=== PATIENT | female | born 1990 | race Caucasian/White ===

== ENCOUNTER 2017-05-09 12:25 | Emergency (ER) | payer OTHER ==
[2017-05-09 12:37] VITALS: BP 148/109; PULSE 92; RESP 18; TEMP 99.1; O2SAT 98
--- NOTE | 2017-05-09 14:24 | EDPHY ---
H & P Stated Complaint: psych evaluation Time Seen by Provider: 05/09/17 14:11 HPI/ROS: CHIEF COMPLAINT: Psychosis HISTORY OF PRESENT ILLNESS: The patient is a 26-year-old female who is brought in by her family for psychotic features. She states that she is seeing things and she is very paranoid that she is going to if she falls asleep. She has a history of marijuana use for Crohn's disease. She also reports a history of heroin addiction after hospitalization that she went through recovery for several years ago. She more recently has been taking mushrooms, MDMA, LSD and DMT. She states that she took these on Saturday and on Saturday she felt like she was having a spiritual awakening but then on Saturday and Saturday during the eclipse became very afraid and thought that a shaman was entering her body. She and her family deny any history of schizophrenia or bipolar. She was hospitalized once for depression several years ago. She does not currently take any medications. She did major in Psychiatry he graduated top of her class. She complains about some wounds on her right foot and pain in her left ear and is concerned that she has an infection that is going to kill her . The patient told nursing staff that she has also been on a 36 hour fast and has not been taking her Seroquel regularly. REVIEW OF SYSTEMS: Constitutional: denies: chills, fever, recent illness, recent injury EENTM: denies: blurred vision, double vision, nose congestion Respiratory: denies: cough, shortness of breath Cardiac: denies: chest pain, irregular heart rate, lightheadedness, palpitations Gastrointestinal/Abdominal: denies: abdominal pain, diarrhea, nausea, vomiting, blood streaked stools Genitourinary: denies: dysuria, frequency, hematuria, pain Musculoskeletal: denies: joint pain, muscle pain Skin: denies: lesions, rash, jaundice, bruising Neurological: denies: headache, numbness, paresthesia, tingling, dizziness, weakness Hematologic/Lymphatic: denies: blood clots, easy bleeding, easy bruising Immunologic/allergic: denies: HIV/AIDS, transplant EXAM: GENERAL: Well-appearing, well-nourished and in no acute distress. HEAD: Atraumatic, normocephalic. EYES: Pupils equal round and reactive to light, extraocular movements intact, sclera anicteric, conjunctiva are normal. ENT: Pain in left ear but TMs normal, canal normal, nares patent, oropharynx clear without exudates. Moist mucous membranes. NECK: Normal range of motion, supple without lymphadenopathy or JVD. LUNGS: Breath sounds clear to auscultation bilaterally and equal. No wheezes rales or rhonchi. HEART: Regular rate and rhythm without murmurs, rubs or gallops. ABDOMEN: Soft, nontender, normoactive bowel sounds. No guarding, no rebound. No masses appreciated. BACK: No CVA tenderness, no spinal tenderness, step-offs or deformities EXTREMITIES: Normal range of motion, no pitting or edema. No clubbing or cyanosis. NEUROLOGICAL: Cranial nerves II through XII grossly intact. Normal speech, normal gait. 5/5 strength, normal movement in all extremities, normal sensation PSYCH: Normal mood, normal affect. SKIN: Small bites or wounds to bottom of right foot. No significant erythema or infection. Source: Patient Exam Limitations: No limitations - Personal History LMP (Females 10-55): 8-14 Days Ago Current Tetanus/Diphtheria Vaccine: Yes - Medical/Surgical History Hx Asthma: No Hx Chronic Respiratory Disease: No Hx Diabetes: No Hx Cardiac Disease: No Hx Renal Disease: No Hx Cirrhosis: No Hx Alcoholism: No Hx HIV/AIDS: No Hx Splenectomy or Spleen Trauma: No Other PMH: Depression, polysubstance abuse. PCOS - Family History Significant Family History: No pertinent family hx - Social History Smoking Status: Never smoked Alcohol Use: Sober Drug Use: None Constitutional: Initial Vital Signs Temperature (C) 37.3 C 05/09/17 12:34 Heart Rate 92 05/09/17 12:34 Respiratory Rate 18 05/09/17 12:34 Blood Pressure 148/109 H 05/09/17 12:34 O2 Sat (%) 98 05/09/17 12:34 O2 Delivery Mode Room Air Allergies/Adverse Reactions: sulfamethoxazole [From Septra] Allergy (Unknown, Verified 06/24/15 10:56) trimethoprim [From Septra] Allergy (Unknown, Verified 06/24/15 10:56) Home Medications: Medication Instructions Recorded QUEtiapine FUMARATE [Seroquel 50 50 mg PO DAILY 06/24/15 mg (RX)] Medical Decision Making ED Course/Re-evaluation: 6:20 p.m. the patient has been quite calm since receiving Ativan. She is not suicidal or homicidal and therefore not placed on hold. We are awaiting psychiatric evaluation. 8:40 p.m. the patient has been evaluated. They do not think that she meets criteria for admission. The patient now wishes to leave. Her family is here to take her. We have given her resources to follow up with mental health. Patient and family are happy with this plan. The patient states that she needs to go get some sleep. She is now caring on a conversation and answering all questions appropriately. I do feel that she has capacity make her own medical decisions. She does not endorse any suicidal statements and does not seem to be danger to herself or anybody else. Differential Diagnosis: Partial list of the Differential diagnosis considered include but were not limited to; polysubstance abuse, psychosis, bipolar and although unlikely based on the history and physical exam, I also considered head injury, infection. - Data Points Laboratory Results: Laboratory Results 05/09/17 14:30 05/09/17 14:30 05/09/17 05/09/17 05/09/17 17:59 14:30 14:30 WBC RBC Hgb Hct MCV MCH MCHC RDW Plt Count MPV Neut % (Auto) Lymph % (Auto) Edwards % (Auto) Eos % (Auto) Baso % (Auto) Nucleat RBC Rel Count Absolute Neuts (auto) Absolute Lymphs (auto) Absolute Monos (auto) Absolute Eos (auto) Absolute Basos (auto) Absolute Nucleated RBC Immature Gran % Immature Gran # Sodium 139 mEq/L mEq/L (134-144) Potassium 4.8 mEq/L mEq/L (3.5-5.2) Chloride 105 mEq/L mEq/L (97-110) Carbon Dioxide 21 mEq/l L mEq/l (22-31) Anion Gap 13 mEq/L mEq/L (8-16) BUN 10 mg/dL mg/dL (7-23) Creatinine 0.7 mg/dL mg/dL (0.6-1.0) Estimated GFR > 60 Glucose 115 mg/dL H mg/dL (70-100) Calcium 9.3 mg/dL mg/dL (8.5-10.4) Beta HCG, Qual NEGATIVE Specimen Hemolysis 122 Urine Opiates Screen NEGATIVE (NEGATIVE) Urine Barbiturates NEGATIVE (NEGATIVE) Ur Phencyclidine Scrn NEGATIVE (NEGATIVE) Ur Amphetamine Screen NEGATIVE (NEGATIVE) U Benzodiazepines Scrn NEGATIVE (NEGATIVE) Urine Cocaine Screen NEGATIVE (NEGATIVE) U Marijuana (THC) Screen NON-NEGATIVE H (NEGATIVE) Ethyl Alcohol < 10 mg/dL mg/dL (0-10) 05/09/17 14:30 WBC 10.02 10^3/uL H 10^3/uL (3.80-9.50) RBC 4.30 10^6/uL 10^6/uL (4.18-5.33) Hgb 13.4 g/dL g/dL (12.6-16.3) Hct 38.9 % % (38.0-47.0) MCV 90.5 fL fL (81.5-99.8) MCH 31.2 pg pg (27.9-34.1) MCHC 34.4 g/dL g/dL (32.4-36.7) RDW 12.2 % % (11.5-15.2) Plt Count 279 10^3/uL 10^3/uL (150-400) MPV 9.2 fL fL (8.7-11.7) Neut % (Auto) 63.8 % % (39.3-74.2) Lymph % (Auto) 27.9 % % (15.0-45.0) Edwards % (Auto) 6.6 % % (4.5-13.0) Eos % (Auto) 1.0 % % (0.6-7.6) Baso % (Auto) 0.3 % % (0.3-1.7) Nucleat RBC Rel Count 0.0 % % (0.0-0.2) Absolute Neuts (auto) 6.39 10^3/uL 10^3/uL (1.70-6.50) Absolute Lymphs (auto) 2.80 10^3/uL 10^3/uL (1.00-3.00) Absolute Monos (auto) 0.66 10^3/uL 10^3/uL (0.30-0.80) Absolute Eos (auto) 0.10 10^3/uL 10^3/uL (0.03-0.40) Absolute Basos (auto) 0.03 10^3/uL 10^3/uL (0.02-0.10) Absolute Nucleated RBC 0.00 10^3/uL 10^3/uL (0-0.01) Immature Gran % 0.4 % % (0.0-1.1) Immature Gran # 0.04 10^3/uL 10^3/uL (0.00-0.10) Sodium Potassium Chloride Carbon Dioxide Anion Gap BUN Creatinine Estimated GFR Glucose Calcium Beta HCG, Qual Specimen Hemolysis Urine Opiates Screen Urine Barbiturates Ur Phencyclidine Scrn Ur Amphetamine Screen U Benzodiazepines Scrn Urine Cocaine Screen U Marijuana (THC) Screen Ethyl Alcohol Medications Given: Discontinued Medications Lorazepam (Ativan Injection) 1 mg IVP EDNOW ONE Stop: 05/09/17 14:26 Last Admin: 05/09/17 14:44 Dose: 1 mg Departure - Departure Disposition: Home, Routine, Self-Care Clinical Impression: Polysubstance abuse Condition: Fair Instructions: Polysubstance Abuse (ED) Referrals: [facility],. [Clinic] - As per Instructions Diane Escobedo MD [Medical Doctor] - As per Instructions
[2017-05-09] MEDS ORDERED: LORazepam 2 MG/ML INJ IVP ONE (14:25)
[2017-05-09 14:40] LABS: % IMMATURE GRANULYOCYTES 0.4 % (0.0-1.1); ABSOLUTE IMMATURE GRANULOCYTES 0.04 10^3/uL (0.00-0.10); ADD DIFF? NO; ADD MORPH? NO; ADD SCAN? NO; ATYPICAL LYMPHOCYTE FLAG 60 (0-99); FRAGMENT RBC FLAG 0 (0-99); HEMATOCRIT 38.9 % (38.0-47.0); HEMOGLOBIN 13.4 g/dL (12.6-16.3); LEFT SHIFT FLG 0 (0-99); LIPEMIA HEMOLYSIS FLAG 90 (0-99); MEAN CELL HEMOGLOBIN 31.2 pg (27.9-34.1); MEAN CELL HEMOGLOBIN CONCENTR. 34.4 g/dL (32.4-36.7); MEAN CELL VOLUME 90.5 fL (81.5-99.8); MEAN PLATELET VOLUME 9.2 fL (8.7-11.7); PLATELET CLUMPS FLAG 10 (0-99); PLATELET COUNT 279 10^3/uL (150-400); RED CELL DISTRIBUTION WIDTH 12.2 % (11.5-15.2)
[2017-05-09 15:02] LABS: ANION GAP 13 mEq/L (8-16); CALCIUM 9.3 mg/dL (8.5-10.4); CARBON DIOXIDE 21 mEq/l (22-31); CHLORIDE 105 mEq/L (97-110); CREATININE 0.7 mg/dL (0.6-1.0); ETHANOL SERUM < 10 mg/dL (0-10); GLOMERULAR FILTRATION RATE > 60; GLUCOSE 115 mg/dL (70-100); POTASSIUM 4.8 mEq/L (3.5-5.2); SODIUM 139 mEq/L (134-144); SPECIMEN HEMOLYSIS 122
[2017-05-09] MEDS ORDERED: MAGNESIUM CITRATE 300 ML BOTTLE ONE (18:59)
== END 2017-05-09 20:57 | disposition home or self-care (01) ==
DX: F19.10 Other psychoactive substance abuse, uncomplicated (principal)
CPT/HCPCS: 80305; 96374; G0480; J2060

== ENCOUNTER 2017-05-30 09:43 | Emergency (ER) | payer OTHER ==
--- NOTE | 2017-05-30 10:24 | EDPHY ---
HPI/HX/ROS/PE/MDM Narrative: CHIEF COMPLAINT: M1 hold, altered mental status HPI: The patient is a 26-year-old female with a history of bipolar 1. She was brought to the emergency department by [place] [employer] on an M1 hold after contacting the patient at her apartment. The patient has apparently been experiencing a severe manic episode. Her parents were planning on flying out to convince her to be admitted to a facility in [place]. The patient is extremely paranoid and [id number] per police department and family. REVIEW OF SYSTEMS: Aside from elements discussed in the HPI, a comprehensive 10-point review of systems was reviewed and is negative. PMH: Includes bipolar 1. SOCIAL HISTORY: Patient denies drug abuse. Single. PHYSICAL EXAM: General:Patient is alert, in no acute distress. She is agitated and hyperactive. ENT:Eyes are normal to inspection. ENT inspection normal. Neck: Normal inspection. Full range of motion. Respiratory:No respiratory distress. Breath sounds normal bilaterally. Cardiovascular: Regular rate and rhythm. Strong peripheral pulses. Normal cap refill. Abdomen:The abdomen is nontender to palpation. There are no peritoneal signs. There are normal bowel sounds. Back: Normal to inspection. No tenderness to palpation. Skin: Normal color. No rash. Warm and dry. Extremities: Normal appearance. Full range of motion. Neuro: Oriented x3. Normal motor function. Normal sensory function. Psych: Hyperactive, denies suicidality. (Fernando Mathews) MDM: 10:00 p.m. the patient has been accepted by Dr. Williamson at [facility]. Transfer paperwork completed. (Remy Lara) - Data Points Laboratory Results: Laboratory Results 05/30/17 10:30 05/30/17 10:30 05/30/17 05/30/17 05/30/17 10:55 10:30 10:30 WBC RBC Hgb Hct MCV MCH MCHC RDW Plt Count MPV Neut % (Auto) Lymph % (Auto) Graham % (Auto) Eos % (Auto) Baso % (Auto) Nucleat RBC Rel Count Absolute Neuts (auto) Absolute Lymphs (auto) Absolute Monos (auto) Absolute Eos (auto) Absolute Basos (auto) Absolute Nucleated RBC Immature Gran % Immature Gran # Sodium 139 mEq/L mEq/L (134-144) Potassium 3.8 mEq/L mEq/L (3.5-5.2) Chloride 102 mEq/L mEq/L (97-110) Carbon Dioxide 24 mEq/l mEq/l (22-31) Anion Gap 13 mEq/L mEq/L (8-16) BUN 16 mg/dL mg/dL (7-23) Creatinine 0.8 mg/dL mg/dL (0.6-1.0) Estimated GFR > 60 Glucose 85 mg/dL mg/dL (70-100) Calcium 9.3 mg/dL mg/dL (8.5-10.4) Beta HCG, Qual NEGATIVE Urine Opiates Screen NEGATIVE (NEGATIVE) Urine Barbiturates NEGATIVE (NEGATIVE) Ur Phencyclidine Scrn NEGATIVE (NEGATIVE) Ur Amphetamine Screen NEGATIVE (NEGATIVE) U Benzodiazepines Scrn NEGATIVE (NEGATIVE) Urine Cocaine Screen NEGATIVE (NEGATIVE) U Marijuana (THC) Screen NON-NEGATIVE H (NEGATIVE) Ethyl Alcohol < 10 mg/dL mg/dL (0-10) 05/30/17 10:30 WBC 9.06 10^3/uL 10^3/uL (3.80-9.50) RBC 4.83 10^6/uL 10^6/uL (4.18-5.33) Hgb 14.7 g/dL g/dL (12.6-16.3) Hct 44.6 % % (38.0-47.0) MCV 92.3 fL fL (81.5-99.8) MCH 30.4 pg pg (27.9-34.1) MCHC 33.0 g/dL g/dL (32.4-36.7) RDW 12.6 % % (11.5-15.2) Plt Count 303 10^3/uL 10^3/uL (150-400) MPV 9.0 fL fL (8.7-11.7) Neut % (Auto) 58.9 % % (39.3-74.2) Lymph % (Auto) 34.2 % % (15.0-45.0) Graham % (Auto) 4.6 % % (4.5-13.0) Eos % (Auto) 1.8 % % (0.6-7.6) Baso % (Auto) 0.3 % % (0.3-1.7) Nucleat RBC Rel Count 0.0 % % (0.0-0.2) Absolute Neuts (auto) 5.33 10^3/uL 10^3/uL (1.70-6.50) Absolute Lymphs (auto) 3.10 10^3/uL H 10^3/uL (1.00-3.00) Absolute Monos (auto) 0.42 10^3/uL 10^3/uL (0.30-0.80) Absolute Eos (auto) 0.16 10^3/uL 10^3/uL (0.03-0.40) Absolute Basos (auto) 0.03 10^3/uL 10^3/uL (0.02-0.10) Absolute Nucleated RBC 0.00 10^3/uL 10^3/uL (0-0.01) Immature Gran % 0.2 % % (0.0-1.1) Immature Gran # 0.02 10^3/uL 10^3/uL (0.00-0.10) Sodium Potassium Chloride Carbon Dioxide Anion Gap BUN Creatinine Estimated GFR Glucose Calcium Beta HCG, Qual Urine Opiates Screen Urine Barbiturates Ur Phencyclidine Scrn Ur Amphetamine Screen U Benzodiazepines Scrn Urine Cocaine Screen U Marijuana (THC) Screen Ethyl Alcohol Medications Given: Discontinued Medications Nicotine (Nicoderm Cq) 21 mg TD EDNOW ONE Stop: 05/30/17 17:29 Last Admin: 05/30/17 17:32 Dose: 21 mg Quetiapine Fumarate (Seroquel) 50 mg PO EDNOW ONE Stop: 05/30/17 17:24 Last Admin: 05/30/17 18:16 Dose: 50 mg Quetiapine Fumarate (Seroquel) 400 mg PO EDNOW ONE Stop: 05/30/17 21:01 Last Admin: 05/30/17 21:04 Dose: 400 mg General Time Seen by Provider: 05/30/17 09:44 Initial Vital Signs: Initial Vital Signs Temperature (C) 37 C 05/30/17 09:50 Heart Rate 108 H 05/30/17 09:50 Respiratory Rate 16 05/30/17 09:50 Blood Pressure 110/86 H 05/30/17 09:50 O2 Sat (%) 98 05/30/17 09:50 O2 Delivery Mode Room Air Allergies/Adverse Reactions: sulfamethoxazole [From ] Allergy (Unknown, Verified 06/24/15 10:56) trimethoprim [From ] Allergy (Unknown, Verified 06/24/15 10:56) Home Medications: Medication Instructions Recorded QUEtiapine FUMARATE [Seroquel 50 50 mg PO DAILY 06/24/15 mg (RX)] Departure - Departure Disposition: Other Psych, Not Augie Clinical Impression: Acute psychosis Condition: Fair Referrals: NONE *PRIMARY CARE P,. [Primary Care Provider] - As per Instructions
[2017-05-30 10:42] LABS: % IMMATURE GRANULYOCYTES 0.2 % (0.0-1.1); ABSOLUTE IMMATURE GRANULOCYTES 0.02 10^3/uL (0.00-0.10); ADD DIFF? NO; ADD MORPH? NO; ADD SCAN? NO; ATYPICAL LYMPHOCYTE FLAG 20 (0-99); FRAGMENT RBC FLAG 0 (0-99); HEMATOCRIT 44.6 % (38.0-47.0); HEMOGLOBIN 14.7 g/dL (12.6-16.3); LEFT SHIFT FLG 0 (0-99); LIPEMIA HEMOLYSIS FLAG 80 (0-99); MEAN CELL HEMOGLOBIN 30.4 pg (27.9-34.1); MEAN CELL VOLUME 92.3 fL (81.5-99.8); PLATELET CLUMPS FLAG 10 (0-99); PLATELET COUNT 303 10^3/uL (150-400); RED BLOOD CELL COUNT 4.83 10^6/uL (4.18-5.33); RED CELL DISTRIBUTION WIDTH 12.6 % (11.5-15.2)
[2017-05-30 10:56] LABS: ANION GAP 13 mEq/L (8-16); CALCIUM 9.3 mg/dL (8.5-10.4); CARBON DIOXIDE 24 mEq/l (22-31); CHLORIDE 102 mEq/L (97-110); CREATININE 0.8 mg/dL (0.6-1.0); ETHANOL SERUM < 10 mg/dL (0-10); GLOMERULAR FILTRATION RATE > 60; GLUCOSE 85 mg/dL (70-100); POTASSIUM 3.8 mEq/L (3.5-5.2); SODIUM 139 mEq/L (134-144)
[2017-05-30] MEDS ORDERED: QUEtiapine FUMARATE 50 MG TAB PO ONE (17:23)
[2017-05-30] MEDS ORDERED: NICOTINE 21 MG/24 HR PATCH TD ONE (17:28)
[2017-05-30] MEDS ORDERED: QUEtiapine FUMARATE 25 MG TAB PO ONE (20:27)
[2017-05-30] MEDS ORDERED: QUEtiapine FUMARATE 200 MG TAB PO ONE (21:00)
[2017-05-30 23:32] VITALS: BP 95/59; PULSE 66; RESP 16; TEMP 97.3; O2SAT 96
== END 2017-05-30 23:32 ==
DX: F23 Brief psychotic disorder (principal)
CPT/HCPCS: 80305; G0480

== ENCOUNTER 2017-07-05 20:26 | Emergency (ER) | payer OTHER ==
[2017-07-05 20:47] VITALS: O2SAT 96
[2017-07-05] MEDS ORDERED: HYDROCODONE/APAP 5/325 TAB PO ONE (21:22)
--- NOTE | 2017-07-05 22:21 | EDPHY ---
H & P Smoking Status: Never smoked Time Seen by Provider: 07/05/17 21:39 HPI/ROS: CHIEF COMPLAINT: Left knee injury HISTORY OF PRESENT ILLNESS: 26-year-old female presents to the emergency department with isolated pain to her left knee. The patient was rock climbing and fell approximately 9 feet. She states that she twisted her left knee when she was pushing off of the rock. She complains of isolated pain to the left knee. She has pain especially when she tries to fully extend her left knee. She did not hit her head or lose consciousness. Denies pain in her left ankle or hip. Denies any other trauma or injury. ROS: No numbness or tingling in her toes, pain in her left ankle or left hip. Denies headache. (Autumn Shi) Past Medical/Surgical History: Negative (Bea Shiricardo Joyner) Social History: Single and lives in [place] (Bea Shirina Anya) Physical Exam: On examination there is no effusion noted to the left knee. Unable to fully extend the left knee secondary to pain. She has pain with palpation in the medial and lateral joint line. There is no obvious ligament instability although the exam is limited by her pain. She is able to flex her left knee to about 90 degrees before she is limited by pain. Full range of motion of her left ankle. No pain with internal or external rotation of the left hip. Her gait is not tested due to pain. (Autumn Shi) Constitutional: Initial Vital Signs Temperature (C) 36.5 C 07/05/17 20:44 Heart Rate 89 07/05/17 20:44 Respiratory Rate 20 07/05/17 20:44 Blood Pressure 109/72 07/05/17 20:44 O2 Sat (%) 96 07/05/17 20:44 O2 Delivery Mode Room Air Allergies/Adverse Reactions: sulfamethoxazole [From Septra] Allergy (Unknown, Verified 07/05/17 20:44) trimethoprim [From Septra] Allergy (Unknown, Verified 07/05/17 20:44) Home Medications: Medication Instructions Recorded QUEtiapine FUMARATE [Seroquel 50 50 mg PO DAILY 06/24/15 mg (RX)] Hydrocodone/APAP 5/325 [Edison 1 each PO Q4-6PRN PRN #15 tab 07/05/17 5/325 (*)] MDM/Departure - MDM Imaging: I viewed and interpreted images myself - MDM Procedures: Patient was placed in straight leg knee immobilizer and examined post application in good placement with normal CLASSIFICATION INSPECTOR. (Autumn Shi) Medications Given: Discontinued Medications Hydrocodone Bitart/Acetaminophen (Edison 5/325) 1 tab PO EDNOW ONE Stop: 07/05/17 21:23 Last Admin: 07/05/17 21:35 Dose: 1 tab Hydrocodone Bitart/Acetaminophen (Edison 5/325mg Prepack#6) 1 btl TAKEHOME EDNOW ONE Stop: 07/05/17 22:30 Last Admin: 07/05/17 22:33 Dose: 1 btl ED Course/Re-evaluation: The patient was evaluated and managed by the physician traffic assistant. I have reviewed this chart and I agree with the findings and plan of care as documented , as indicated by my signature. I am the secondary supervising physician. ( Elaine Patrick) - Depart Disposition: Home, Routine, Self-Care Clinical Impression: Left knee sprain Qualifiers: Encounter type: initial encounter Condition: Good Instructions: Hydrocodone/Acetaminophen (By mouth), Knee Sprain (ED) Additional Instructions: Knee immobilizer for comfort and support. Weightbear as tolerated or use crutches. Ibuprofen 400 mg every 8 hours as needed for pain. Hydrocodone for severe pain as directed. Prescriptions: Hydrocodone/APAP 5/325 [Edison 5/325 (*)] 1 each PO Q4-6PRN PRN #15 tab PRN Reason: Pain, Severe Referrals: Naun Nash MD [Medical Doctor] - 5-7 days, call for appt. (Orthopedic surgeon on-call)
[2017-07-05 22:29] VITALS: BP 101/62; PULSE 72; RESP 18; TEMP 98.1
[2017-07-05] MEDS ORDERED: HYDROCOD/APAP 5/325 PREPACK#6 BTL TAKEHOME ONE (22:29)
== END 2017-07-05 22:43 | disposition home or self-care (01) ==
DX: S83.92XA Sprain of unspecified site of left knee, initial encounter (principal); W17.89XA Other fall from one level to another, initial encounter; Y99.8 Other external cause status; Y93.31 Activity, mountain climbing, rock climbing and wall climbing
CPT/HCPCS: L1830